=== PATIENT | male | born 1955 | race Caucasian/White ===

== ENCOUNTER 2020-09-06 14:27 | Emergency (ER) | payer OTHER ==
[~2020-09-06] VITALS: Ht 177.8 cm; Wt 88.5 kg
[2020-09-06] MEDS ORDERED: Norco 5-325 Ta1 EACH PO (15:37)
== END 2020-09-06 15:49 | disposition home or self-care (01) ==
LOC: ER 14:27
DX: S82.844A Nondisplaced bimalleolar fracture of right lower leg, initial encounter for closed fracture (principal); W01.0XXA Fall on same level from slipping, tripping and stumbling without subsequent striking against object, initial encounter
CPT/HCPCS: 29505; 73610; 99283-25

== ENCOUNTER 2021-06-09 10:17 | Observation (INO) | payer OTHER ==
[~2021-06-09] VITALS: Ht 177.8 cm; Wt 79.4 kg
[~2021-06-09 10:17] MED LIST: Norco 5-325 Ta1 EACH PO
[2021-06-09 10:59] LABS: BASOPHILS ABSOLUTE AUTO 0.05 K/mm3 (0.00-0.23); BASOPHILS PERCENT AUTO 0 % (0-2); EOSINOPHILS PERCENT AUTO 0 % (0-6); Hematocrit 39.9 % (37.0-53.0); Hemoglobin 13.8 g/dL (13.5-17.5); IMMATURE GRAN ABSOLUTE AUTO 0.06 K/mm3 (0.00-0.10); IMMATURE GRAN PERCENT AUTO 0 % (0-1); LYMPHOCYTES ABSOLUTE AUTO 0.91 K/mm3 (0.84-5.20); LYMPHOCYTES PERCENT AUTO 6 % (21-46); MONOCYTES ABSOLUTE AUTO 0.79 K/mm3 (0.16-1.47); MONOCYTES PERCENT AUTO 5 % (4-13); Mean Corpuscular HGB Conc 34.6 g/dL (31.5-36.5); Mean Corpuscular Volume 90 fL (80-100); Mean Platelet Volume 10.1 fL (9.1-12.4); NEUTROPHILS ABSOLUTE AUTO 13.92 K/mm3 (1.96-9.15); NEUTROPHILS PERCENT AUTO 89 % (41-73); Platelet Count 403 K/mm3 (150-400); RDW Coefficient Variation 11.8 % (11.7-14.2); RDW Standard Deviation 38.8 fL (35.1-46.3); Red Blood Cell Count 4.45 M/mm3 (4.30-5.90); White Blood Cell Count 15.73 K/mm3 (4.00-11.30)
[2021-06-09 11:09] LABS: Anion Gap 6 mmol/L (6-16); Blood Urea Nitrogen 17 mg/dL (8-24); CO2, Blood 25 mmol/L (21-32); Calcium, Blood 9.1 mg/dL (8.5-10.1); Chloride, Blood 109 mmol/L (98-108); Creatinine, Blood 1.13 mg/dL (0.60-1.20); Glomerular Filtration Rate >60 (60-); Glucose, Blood 127 mg/dL (70-99); Magnesium, Blood 2.1 mg/dL (1.6-2.4); Potassium, Blood 3.4 mmol/L (3.5-5.5); Sodium, Blood 140 mmol/L (136-145); Troponin I <0.015 ng/mL (0.000-0.040)
[2021-06-09 13:15] LABS: Source, Urine Clean Catch
[2021-06-09 13:23] LABS: Appearance, Urine Hazy (Clear); Bilirubin, Urine Neg (Neg); Blood, Urine 4+ (Neg); Color, Urine Yellow (P-Yellow); Glucose Qualitative, Urine Neg (Neg); Ketones, Urine 4+ (Neg); Leukocyte Esterase, Urine Neg (Neg); Nitrite, Urine Neg (Neg); Protein, Urine 2+ (Neg); Urobilinogen, Urine NORM (Normal)
[2021-06-09 13:39] LABS: Calcium Oxalate Crystals Mod /hpf
[2021-06-09 13:40] LABS: Bacteria Few /hpf; Squamous Epithelial Cells Not Seen /hpf (Few)
[2021-06-09 18:18] LABS: SARS-Cov-2 (COVID-19) PCR, MMC NEGATIVE (NEGATIVE)
--- NOTE | 2021-06-10 04:21 | NUR ---
PATIENT IS A NEW ADMIT FROM ER. RN TO RN REPORT RECEIVED. PATIENT IS ADMITTED FOR PAIN CONTROL D/T URINARY TRACT OBSTRUCTION R/T KIDNEYSTONE. PATIENT IS ALERT AND ORIENTED X4. PATIENT IS INDEPENDENT IN HIS ROOM. RN REPORTED THAT PATIENT'S POTASSIUM WAS 3.4 AND PATIENT WAS GIVEN ORAL POTASSIUM. PATIENT REPORTED PAIN TO HIS R MID ABDOMEN AND PATIENT WAS MEDICATED WITH TOREDOL X2 WITH GOOD EFFECT. PATIENT REMAINS NPO AFTER MIDNIGHT DUE TO THE PROCEDURE HE WILL BE HAVING THIS MORNING.
[2021-06-10 04:38] LABS: BASOPHILS ABSOLUTE AUTO 0.05 K/mm3 (0.00-0.23); BASOPHILS PERCENT AUTO 1 % (0-2); EOSINOPHILS ABSOLUTE AUTO 0.11 K/mm3 (0.00-0.68); EOSINOPHILS PERCENT AUTO 1 % (0-6); Hematocrit 36.4 % (37.0-53.0); Hemoglobin 12.3 g/dL (13.5-17.5); IMMATURE GRAN ABSOLUTE AUTO 0.04 K/mm3 (0.00-0.10); IMMATURE GRAN PERCENT AUTO 0 % (0-1); LYMPHOCYTES ABSOLUTE AUTO 1.73 K/mm3 (0.84-5.20); LYMPHOCYTES PERCENT AUTO 18 % (21-46); MONOCYTES PERCENT AUTO 8 % (4-13); Mean Corpuscular HGB 30.8 pg (26.0-34.0); Mean Corpuscular HGB Conc 33.8 g/dL (31.5-36.5); Mean Corpuscular Volume 91 fL (80-100); Mean Platelet Volume 9.9 fL (9.1-12.4); NEUTROPHILS ABSOLUTE AUTO 6.94 K/mm3 (1.96-9.15); NEUTROPHILS PERCENT AUTO 72 % (41-73); Platelet Count 317 K/mm3 (150-400); RDW Standard Deviation 40.7 fL (35.1-46.3); Red Blood Cell Count 3.99 M/mm3 (4.30-5.90); White Blood Cell Count 9.67 K/mm3 (4.00-11.30)
[2021-06-10 04:59] LABS: Anion Gap 7 mmol/L (6-16); Blood Urea Nitrogen 10 mg/dL (8-24); Bun/Creatinine Ratio 9.3 (12.0-20.0); CO2, Blood 23 mmol/L (21-32); Calcium, Blood 8.8 mg/dL (8.5-10.1); Chloride, Blood 111 mmol/L (98-108); Creatinine, Blood 1.07 mg/dL (0.60-1.20); Glomerular Filtration Rate >60 (60-); Glucose, Blood 101 mg/dL (70-99); Potassium, Blood 3.8 mmol/L (3.5-5.5); Sodium, Blood 141 mmol/L (136-145)
--- NOTE | 2021-06-10 07:45 | NUR ---
PT DISCHARGED THE PT WAS DISCHARED. PT VERBALIZED UNDERSTANDING OF THE DC INSTRUCTIONS. THE PT WAS UPSET THAT HE WAS NOT DISCHARGED AT 0700 IN ORDER TO MAKE HIS APPOINTMENT AT THE UROLOGY CLINIC IN [place], WHERE HE HAD A PROCEDURE SCHEDULED. THE UROLOGY CLINIC WAS NOTIFIED THAT THE PT WAS IN ROUTE TO THEM BY THE [employer], AND THEY STATED THAT THE PT WOULD STILL BE ABLE TO HAVE THE PROCRDURE DONE. THE PT WAS TRANSFERED VIA WHEELCHAIR TO HIS CAR ACCOMPANIED BY HIS AND THIS RN. PT APPEARED TO BE BREATHING EASILY AT THE TIME OF DC
--- NOTE | 2021-06-10 08:06 | NUR ---
PT CONCERNED ABOUT NOT MAKING IT TO [facility] ON TIME, STATES HE WAS TO BE THERE AT 0845 FOR PRE OP. CALLED AND SPOKE WITH [facility] AND LET THEM KNOW PT IS ON HIS WAY THAT HE WAS CONCERNED OF MISSING HIS APT. THEY REPORT PT WAS AN ADD ON FOR TODAY AND PT WILL BE SEEN.
== END 2021-06-10 07:55 | disposition home or self-care (01) ==
LOC: ER 10:17 → MEDS 10:18
PROVIDERS: Student in an Organized Health Care Education/Training Program; ADMIT Internal Medicine
DX: N13.2 Hydronephrosis with renal and ureteral calculous obstruction (principal); D72.829 Elevated white blood cell count, unspecified; F17.220 Nicotine dependence, chewing tobacco, uncomplicated; Z20.822 Contact with and (suspected) exposure to COVID-19; Z88.5 Allergy status to narcotic agent
CPT/HCPCS: 36415; 74176; 80048; 81001; 83605; 83735; 84484; 85025; 94762; 96361; 96365; 96374; 96375; 96376; 99285-25; A9270; C9113; G0378; J0696; J1170; J1885; J2550; J2765; J7030; U0004

== ENCOUNTER 2024-09-03 11:32 | Observation (INO) | payer OTHER ==
[~2024-09-03] VITALS: Ht 177.8 cm; Wt 88.9 kg
[~2024-09-03 11:32] MED LIST changes: +CHLO25B PO; +FLONASE ALLERG9.9 M2; +FLUOXETINE HCL20 M1 PO; +LEVSOD137 PO; +MIRT15 PO; +MYRBETRIQ50 MG PO; +PANT20 PO; +ROSU10TA PO; +[UNRECOGNIZED DRUG - OTHER]
[2024-09-03 12:58] LABS: BASOPHILS ABSOLUTE AUTO 0.05 K/mm3 (0.00-0.23); BASOPHILS PERCENT AUTO 1 % (0-2); EOSINOPHILS ABSOLUTE AUTO 0.15 K/mm3 (0.00-0.68); EOSINOPHILS PERCENT AUTO 2 % (0-6); Hematocrit 40.7 % (37.0-53.0); Hemoglobin 13.6 g/dL (13.5-17.5); IMMATURE GRAN ABSOLUTE AUTO 0.03 K/mm3 (0.00-0.10); IMMATURE GRAN PERCENT AUTO 0 % (0-1); LYMPHOCYTES ABSOLUTE AUTO 1.87 K/mm3 (0.84-5.20); LYMPHOCYTES PERCENT AUTO 25 % (21-46); MONOCYTES ABSOLUTE AUTO 0.51 K/mm3 (0.16-1.47); MONOCYTES PERCENT AUTO 7 % (4-13); Mean Corpuscular HGB 30.6 pg (26.0-34.0); Mean Corpuscular HGB Conc 33.4 g/dL (31.5-36.5); Mean Corpuscular Volume 92 fL (80-100); Mean Platelet Volume 9.5 fL (9.1-12.4); NEUTROPHILS ABSOLUTE AUTO 4.82 K/mm3 (1.96-9.15); NEUTROPHILS PERCENT AUTO 65 % (41-73); Platelet Count 363 K/mm3 (150-400); RDW Coefficient Variation 12.7 % (11.7-14.2); RDW Standard Deviation 42.9 fL (35.1-46.3); Red Blood Cell Count 4.44 M/mm3 (4.30-5.90); White Blood Cell Count 7.43 K/mm3 (4.00-11.30)
[2024-09-03 14:18] LABS: Albumin, Blood 3.5 g/dL (3.4-5.0); Bilirubin, Total 0.4 mg/dL (0.1-1.0); Bun/Creatinine Ratio 13.3 (12.0-20.0); Calcium, Blood 9.2 mg/dL (8.5-10.1); Creatinine, Blood 0.98 mg/dL (0.60-1.20); Globulin, Blood 3.6 g/dL (2.2-4.0); Potassium, Blood 4.4 mmol/L (3.5-5.5); Total Protein, Blood 7.1 g/dL (6.4-8.2)
[2024-09-03] MEDS ORDERED: FLU VACC TS2024-25(6MOS UP)/PF 45 MCG/0.5 ML SYRINGE IM SCH (15:20)
--- NOTE | 2024-09-03 17:00 | NUR ---
PT ADMITTED FROM THE ED. PT REPORTS NO DIZZINESS DURING AMBULATION SINCE ADMIT. REPORTS TINGLING/NUMBNESS TO LEFT UPPER EXTREMITY, HOWEVER NUMBNESS/TINGLING TO LEFT LOWER EXTREMITY HAS SUBSIDED. ON RA. TELE RUNNING SINUS WALKER IN THE 40-50'S, PT STATES THIS IS HIS BASELINE.
[2024-09-03 17:01] VITALS: BP 139/95
[2024-09-03] MEDS ORDERED: MYRBETRIQ25 MG PO (17:37)
[2024-09-03 19:25] VITALS: BP 136/84
[2024-09-03] MEDS ORDERED: Mirtazapine 15 MG Tab PO SCH (21:00)
[2024-09-03] MEDS ORDERED: Docusate Sodium 100 MG Cap PO SCH (21:00)
[2024-09-04 02:17] VITALS: BP 111/73
[2024-09-04 06:00] LABS: CHOL/HDL RATIO 3.5; Cholesterol 208 mg/dL (50-200); HDL Cholesterol 60 mg/dL (>39); LDL/HDL RATIO 2.1; Low Density Lipoprotein Chol 127 mg/dL (0-110); Triglycerides 106 mg/dL (30-160); Very Low Density Lipoprot Chol 21 mg/dL (6-32)
[2024-09-04] MEDS ORDERED: Levothyroxine Sodium 0.137 MG Tab PO SCH (06:00)
[2024-09-04 07:16] VITALS: BP 119/84
--- NOTE | 2024-09-04 07:22 | NUR ---
MANAGEMENT TECH SUMMARY NO ACUTE CHANGES OVERNIGHT. PTS ONLY NEUROLOGICAL SYMPTOM IS L ARM NUMBNESS AND TINGLING. NIHSS SCORE IS A 1. HE HAS HAD NO DIZZINESS OVERNIGHT. MRI DONE. PT APPEARED TO SLEEP WELL. Q 4 HR NEURO CHECKS WITH NO CHANGES. SINUS WALKER ON TELE IN THE 50S BUT PT SAYS THIS HAS BEEN HIS BASELINE HIS WHOLE LIFE.
[2024-09-04] MEDS ORDERED: Aspirin 81 MG Chew PO SCH (09:00)
[2024-09-04] MEDS ORDERED: Enoxaparin 40 MG/0.4 ML SYR SC SCH (09:00)
[2024-09-04] MEDS ORDERED: FLUoxetine HCL 20 MG CAP PO SCH (09:00)
[2024-09-04] MEDS ORDERED: Atorvastatin 10 MG Tab PO SCH (09:00)
--- NOTE | 2024-09-04 11:45 | NUR ---
PT DISCHARGED TO HOME. PT PROVIDED AND EDUCATED ON DISCHARGE INSTRUCTIONS. ALL VALUABLES RETURNED AND SENT HOME WITH THE PT.
== END 2024-09-04 11:49 | disposition home or self-care (01) ==
LOC: ER 11:32 → MEDS 11:33
PROVIDERS: Emergency Medicine; ADMIT Internal Medicine
DX: G45.9 Transient cerebral ischemic attack, unspecified (principal); E03.9 Hypothyroidism, unspecified; G47.00 Insomnia, unspecified; F32.9 Major depressive disorder, single episode, unspecified; E78.5 Hyperlipidemia, unspecified; M50.30 Other cervical disc degeneration, unspecified cervical region; Z79.899 Other long term (current) drug therapy; Z88.5 Allergy status to narcotic agent
CPT/HCPCS: 36415; 70450; 70551; 72141; 80053; 80061; 84443; 84484; 85025; 93005; 93010; 93306; 94760; 99285-25; A9270; G0378